=== PATIENT | female | born 1955 | race Caucasian/White ===

== ENCOUNTER → 2020-09-28 | Outpatient (CLI) | payer OTHER | LOC: KOH-I 13:48 | DX: M79.672 Pain in left foot (principal) | CPT/HCPCS: 73630 ==

== ENCOUNTER → 2020-10-31 | Outpatient (CLI) | payer OTHER | LOC: KOH-I 10-25 08:00 | DX: G57.62 Lesion of plantar nerve, left lower limb (principal); M24.10 Other articular cartilage disorders, unspecified site | CPT/HCPCS: 73718 ==